=== PATIENT | female | born 1990 ===

== ENCOUNTER 2024-09-24 21:09 | Inpatient (IN) ==
[2024-09-24] MEDS ORDERED: LIDOCAINE 1% LOCAL 20 ML VIAL INFIL PRN (21:15)
--- NOTE | 2024-09-24 21:21 | History & Physical Report ---
Date of Service September 24, 2024 Assessment & Plan (1) Supervision of elderly multigravida: Plan: Admit to L&D. EFM/toco. Labs, no care labs to include HIV, Hep B, Hep C, Syphilis, GC/C/trich, CBC, glucose, GBS swab. Urine drug screen. PCN for GBS prophylaxis ordered. Anticipate delivery. History of Present Illness Chief Complaint: labor Primary Care Provider: NO PCP 34yo @ unknown gestation - LMP was "sometime in December" - therefore estimating between 35-38 weeks. Has not had any care during this - did a nurse phone visit through our office in mid-August. Came to L&D with complaints of vaginal bleeding and contractions. Last baby delivered 2023 at 36w at [facility]. H/o opiate drug use, states has been clean x 5 years, taking subutex 8mg - 2 tabs daily. Allergies Allergy/AdvReac Type Severity Reaction Status Date / Time No Known Allergies Allergy Unverified 09/24/24 21:45 Home Medications Medication Instructions Recorded Confirmed Type buprenorphine HCl 8 mg sublingual mg sublingual 09/07/24 09/07/24 History tablet duloxetine 60 mg capsule,delayed mg PO 09/07/24 09/07/24 History release prenat.vits,edda,cti-fsjt-qtwkb tab PO 09/07/24 09/07/24 History quetiapine 200 mg tablet 200 mg PO 09/07/24 09/07/24 History Patient History Surgical History (Updated 09/07/24 @ 14:51 by Susan Rubi) S/P tonsillectomy Family History (Updated 09/07/24 @ 14:41 by Susan Rubi) Father Diabetes Other Autoimmune disease Social History (Updated 09/07/24 @ 14:52 by Susan Rubi) Smoking Status: Current every day smoker Tobacco Type: E-cigarettes / Vaping Cigarettes Per Day: vaping daily; Do You Dip or Chew Tobacco: No; marital status: Single marital status details: Father: Magnus [phone] Current Living Situation: Family Current Living Situation Comment: lives with son and father current occupational status: unemployed Review of Systems All systems reviewed & are unremarkable except as noted in HPI & below Physical Exam Physical Exam: FHT Cat 1 Friendly Q 4-5 SVE 8/100/0, bulging membranes Cephalic by limited bedside ultrasound. Constitutional: WD/WN, vitals as above Respiratory: normal respiratory effort, lungs clear to auscultation no respiratory distress Cardiovascular: Rate/Rhythm: regular rate and regular rhythm Gastrointestinal (Abdomen): Inspection/Auscultation: abdomen normal to inspection Percussion/Palpation: abdomen soft; abdomen nontender Gravid. No s/s chorio or abruption. Skin: no rashes, warm and dry Psychiatric: A+Ox3, euthymic affect Results & Data Vital Signs (Past 12 Hours) Vital Signs Pulse BP 09/24/24 21:14 103 H 119/80 Coding Level of Care Code None Diagnoses Supervision of elderly multigravida O09.529
[2024-09-24 21:46] LABS: Hematocrit (blood only) 35.4 % (37.0-47.0); Hemoglobin 12.5 g/dl (12.0-16.0); Mean Corpuscular Hemoglobin 29.8 pg (25.0-34.0); Mean Corpuscular Volume 84.3 fL (80.0-100.0); Platelet Count 269 K/uL (130-400); RDW Standard Deviation 36.0 fL (36.4-46.3); Red Blood Count 4.20 M/uL (4.20-5.40); White Blood Count 11.73 K/ul (4.8-10.8)
[2024-09-24] MEDS: LACTATED RINGER'S 1,000 ML IV PRN (22:00)
[2024-09-24] MEDS ORDERED: NALOXONE HCL 1 MG in SODIUM CHLORIDE 0.9% 1,000 ML IV PRN (22:20)
[2024-09-24] MEDS ORDERED: diphenhydrAMINE 50 MG/ML VIAL IV PRN (22:20)
[2024-09-24] MEDS ORDERED: SODIUM CHLORIDE 0.9% PF INJ 10 ML VIAL EPI PRN (22:20)
[2024-09-24] MEDS ORDERED: ROPIVACAINE 0.5% PF 5 MG/ML 20 ML VIAL EPI PRN (22:20)
[2024-09-24] MEDS ORDERED: NALBUPHINE HCL INJ 10 MG/ML AMP IV PRN (22:20)
[2024-09-24] MEDS ORDERED: LIDOCAINE 2% MPF LOCAL 5 ML VIAL EPI PRN (22:20)
[2024-09-24] MEDS ORDERED: NALOXONE HCL 0.4 MG/1 ML VIAL/CARP IV PRN (22:20)
[2024-09-24] MEDS ORDERED: BUPIVACAINE 0.25% PF 30 ML VIAL EPI PRN (22:20)
--- NOTE | 2024-09-24 22:20 | Anesthesiology Consultation ---
Date of Service September 24, 2024 Assessment & Plan Chart Review Chart Review: Acceptable Risk for Labor Epidural Consults Requested none History Height/Weight Height: 5 ft 4 in Weight: 63.503 kg Allergies Allergy/AdvReac Type Severity Reaction Status Date / Time No Known Allergies Allergy Unverified 09/24/24 21:45 Medications Home Medications Medication Instructions Recorded Confirmed Last Taken buprenorphine HCl 8 mg sublingual mg sublingual 09/07/24 09/07/24 Unknown tablet duloxetine 60 mg capsule,delayed mg PO 09/07/24 09/07/24 Unknown release prenat.vits,edda,zyi-qrpm-dnxsy tab PO 09/07/24 09/07/24 Unknown quetiapine 200 mg tablet 200 mg PO 09/07/24 09/07/24 Unknown Past Family History Family History (Updated 09/07/24 @ 14:41 by Susan Rubi) Father Diabetes Other Autoimmune disease Past Surgical History Surgical History (Updated 09/07/24 @ 14:51 by Susan Rubi) S/P tonsillectomy Social History Smoking Status: Current every day smoker Smoking cigarettes per day: vaping daily Do You Dip or Chew Tobacco: No Hx Alcohol Use: No Hx Substance Use: Yes substance use type: opiates and IV drugs Last Used Substance Other:: 5-6 years; states that she has been on and off of subutex for about 7 years Physical Exam Vital Signs Last Vital Signs Temp 36.8 C 09/24/24 21:25 Pulse 103 H 09/24/24 21:25 BP 119/80 09/24/24 21:25 Testing Laboratory Results 09/24/24 21:28 09/24/24 21:28
[2024-09-24] MEDS: PENICILLIN GK 6 MU in DEXTROSE 5% 250 ML IV STA (22:25)
[2024-09-24 22:34] LABS: Hep B Surface Ag with confirm Negative (Negative); Treponema pallidum RflxConfirm Negative (Negative)
[2024-09-24 22:52] LABS: Hep C Ab Rflx HepCQuant RNA Prelim Positive (Negative)
[2024-09-24] MEDS: fentANYL 2 MCG/ML BUPIVacaine 0.125%-NSS 100ML BAG EPI PRN (23:00)
[2024-09-24] MEDS: LIDOCAINE 2%/EPINEPHRINE 1:200,000 20 ML PF EPI STA (23:00)
[2024-09-24] MEDS: BUPIVACAINE 0.25% PF 30 ML VIAL EPI STA (23:03)
[2024-09-24] MEDS: SODIUM CHLORIDE 0.9% PF INJ 10 ML VIAL EPI STA (23:04)
[2024-09-24] MEDS: fentANYL 2 MCG/ML BUPIVacaine 0.125%-NSS 100ML BAG ONE (23:04)
[2024-09-24] MEDS: BUPIVACAINE 0.25% PF 30 ML VIAL ONE (23:04)
[2024-09-24] MEDS: LIDOCAINE 2%/EPINEPHRINE 1:200,000 20 ML PF ONE (23:04)
[2024-09-24] MEDS: SODIUM CHLORIDE 0.9% PF INJ 10 ML VIAL ONE (23:05)
[2024-09-24 23:09] LABS: Amphetamines+Metham, Urine Neg (Neg); MDMA (Ecstacy), Urine Neg (Neg); Marijuana, Urine Pos (Neg)
[2024-09-25] MEDS ORDERED: PENICILLIN GK 3 MU in DEXTROSE 5% 100 ML IV PRN (00:15)
[2024-09-25] MEDS: OXYTOCIN 30 UNITS/NSS 30 UNITS/500 ML BAG IV PRN (01:31)
--- NOTE | 2024-09-25 01:37 | Anesthesia Procedure Note ---
Date of Service September 25, 2024 Anesthesia Post Epidural Note Vital Signs Vital Signs: Temp Pulse BP Pulse Ox 36.8 C 86 128/56 L 98 09/24/24 21:25 09/25/24 01:31 09/25/24 01:27 09/25/24 01:31 Pain Intensity Bilateral Lower Abdomen: Pain Intensity: 8 Notes Mental Status: alert / awake / arousable and participated in evaluation Nausea / Vomiting: adequately controlled Pain: adequately controlled Airway Patency, RR, SpO2: stable & adequate BP & HR: stable & adequate Hydration State: stable & adequate Neuraxial Anesthesia: was administered and sensory block is resolving Anesthetic Complications: no major complications apparent and Pt Satisfied with anesthetic care Epidural: Removed without complications and With tip intact
--- NOTE | 2024-09-25 01:43 | Delivery Summary ---
Vaginal Delivery Summary Date of Service September 25, 2024 Vaginal Delivery Summary [facility] Vaginal Delivery Summary: Pre-delivery diagnoses: 34yo @ approximately 35 weeks, spontaneous labor, no care, subutex use, AMA Post-delivery diagnoses: same Procedure: spontaneous vaginal delivery Surgeon: Sarah Crystal DO Complications: none Findings: Viable male . Apgars: 8/9 . Weight pending, please see nursery records Estimated QBL: 100ml Description of delivery: The patient progressed to complete with epidural anesthesia. She then began to push. She spontaneously vaginally delivered a viable from the cephalic presentation. The head delivered in ALYSSIA position. The anterior shoulder delivered, followed by the posterior shoulder, followed by the body. The baby was placed on mother's abdomen and a spontaneous cry was heard. Delayed cord clamping was employed, and the cord was doubly clamped and cut. A segment was retained for cord gases. Cord blood was obtained. The placenta was delivered spontaneously intact with a 3-vessel cord. The uterus and vagina were swept of clots and debris. IV pitocin was given. The uterus became firm. The cervix, vagina, and perineum were inspected and no lacerations were noted. Excellent hemostasis was observed. The mother and baby are recovering in stable and good condition in the room. Sponge and instrument counts were correct x 2. Sarah Crystal [facility] Vag[facility] Delivery Charge Vaginal Delivery Codes: 99706 global code for the antepartum, delivery, and post- Delivery Type Details: [facility]
[2024-09-25] MEDS ORDERED: BENZOCAINE 20% SPRY 85 APPLN/85 GM CAN EXT PRN (02:01)
[2024-09-25] MEDS ORDERED: OXYTOCIN 30 UNITS/NSS 30 UNITS/500 ML BAG IV PRN (02:01)
[2024-09-25] MEDS ORDERED: HYDROCORTISONE ACETATE 25 MG SUPP PR PRN (02:01)
[2024-09-25] MEDS ORDERED: DIPHTHER/TETAN/PERTUS Vaccine (Tdap, Adol/Adult) 0.5mL IM ONE (02:01)
[2024-09-25] MEDS: IBUPROFEN 600 MG TAB PO PRN (04:59)
[2024-09-25 06:48] LABS: Base Excess Cord Venous Blood -0.6 mEq/L (-7.7-1.9); Cord Venous Blood PO2 29 mmHg (14.1-43.3); O2 Saturation Cord Venous Bld 70.0 % (<68)
[2024-09-25] MEDS: PRENATAL VITAMIN 1 TAB PO SCH (07:35)
[2024-09-25] MEDS: DOCUSATE SODIUM 100 MG CAP PO SCH (07:35)
[2024-09-25] MEDS: ACETAMINOPHEN 325 MG TAB PO PRN (07:35)
[2024-09-25] MEDS ORDERED: Nursing to Pharmacy Communication SCH (09:15)
[2024-09-25 13:23] LABS: Chlam trach RNA(Genit,Ureth,Ur Not Detected (NotDetected); GC(Neis gon)RNA(Genit,Ureth,Ur Not Detected (NotDetected)
[2024-09-25] MEDS: ONDANSETRON 4 MG OD TAB PO PRN (23:29)
[2024-09-26 05:54] LABS: Hematocrit (blood only) 32.6 % (37.0-47.0); Hemoglobin 11.1 g/dl (12.0-16.0)
--- NOTE | 2024-09-26 07:18 | Obstetrical Progress Note ---
Date of Service September 26, 2024 Assessment & Plan (1) Encounter for assessment: (2) No care in current : Plan Doing well. Routine care. Aware of +prelim hep C and +MJ on urine tox. Continue subutex. Baby will be staying for at least 5 days. Day #:: 1 Subjective Ambulation: ambulating normally Voiding: no voiding problems Passing Gas:: Yes Diet Tolerance:: regular diet Lochia:: Small Feeding Type:: bottle feeding Had some nausea last night but improved this am. Feeling sore. Physical Exam Constitutional WD/WN, vitals as above Respiratory normal respiratory effort, lungs clear to auscultation Cardiovascular RRR, no murmur, no edema Extremities: no calf tenderness and no edema Gastrointestinal (Abdomen) soft, nt, nd, ff/nt at u Psychiatric A+Ox3, euthymic affect Results & Data Vital Signs (Past 12 Hours) Vital Signs Temp Pulse Resp BP O2 Del Method 09/25/24 23:30 36.8 C 60 18 107/68 Room Air 09/25/24 20:30 36.6 C 58 L 18 113/73 Room Air
[2024-09-26 20:07] VITALS: RESP 16
[2024-09-27 07:34] VITALS: BP 100/66; TEMP 98.2; O2SAT 100
--- NOTE | 2024-09-27 07:47 | Obstetrical Progress Note ---
Date of Service September 27, 2024 Assessment & Plan (1) Encounter for assessment: (2) No care in current : Plan 34 yo PP2 from , doing well -Meeting all pp milestones -A-, s/p rhogam -desires depo before leaving, has tolerated in the past and aware of need for q12 wk injections. Will order for before dc -f/u 6 weeks for appt Subjective Ambulation: ambulating normally Voiding: no voiding problems Passing Gas:: Yes Diet Tolerance:: regular diet Lochia:: Small Pain well managed with medication Review of Systems Denies fevers, chills, n/v, FERRIS, CP, SOB Physical Exam Constitutional WD/WN, vitals as above no acute distress Respiratory normal respiratory effort, lungs clear to auscultation Cardiovascular RRR, no murmur, no edema Gastrointestinal (Abdomen) Percussion/Palpation: abdomen soft; abdomen nontender fundus firm at umbilicus and NT Musculoskeletal BLE symmetric, nonerythematous, nontender Results & Data Vital Signs (Past 12 Hours) Vital Signs Temp Pulse Resp BP Pulse Ox O2 Del Method 09/27/24 07:32 98.2 F 68 16 100/66 100 Room Air 09/27/24 03:15 97.5 F L 97 H 16 95/64 L 99 Room Air 09/26/24 23:15 98.1 F 60 16 90/49 L 99 Room Air
[2024-09-27 15:18] VITALS: PULSE 69
[2024-09-29 16:32] LABS: Hepatitis C Vira RNA (Log) PCR 6.54 Log IU/mL (NOT DETECTED)
[2024-10-01 12:58] LABS: Marijuana Quant, GCMS Urine 693 ng/mL (<5)
== END 2024-09-27 18:00 | disposition home or self-care (01) | DRG 807 ==
LOC: OPB 21:09 → 4S1 21:12 → 4E2 09-25 04:35